=== PATIENT | male | born 1940 | race Caucasian/White ===

== ENCOUNTER → 2017-09-28 | Outpatient (CLI) | payer MEDICARE ==
--- NOTE | 2017-09-29 22:42 | MR ---
EXAMINATION TYPE: MR shoulder RT wo con DATE OF EXAM: 09/28/2017 COMPARISON: Outside bilateral shoulder x-ray May 24, 2017. HISTORY: Right shoulder pain with Limited ROM X6 months TECHNIQUE: Multiplanar, multisequence imaging of the right shoulder is performed without contrast. FINDINGS: Rotator Cuff: Distal rotator cuff tendons are intact. Rotator cuff muscle bulk is preserved. Subscapu nelia tendon is intact. Acromioclavicular Joint: There is marked joint space loss with capsular hypertrophy and mild spurring at acromioclavicular joint. There is tiny spur from inferior acromion seen best on paracoronal image s 11. Glenohumeral Joint: Moderate joint space loss is seen. There are small to moderate glenohumeral joint effusion. Labrum: Superior labrum shows degenerative increased signal. Biceps Tendon: The long head of biceps is in normal location within bicipital groove. Bone marrow signal: No focal abnormal marrow signal is appreciated. Other: No additional significant abnormality is appreciated. IMPRESSION: No rotator cuff tear is identified. Moderate acromioclavicular and glenohumeral joint art hropathy noted.
== END | disposition home or self-care (01) ==
LOC: RADMRIMAIN 20:38
PROVIDERS: ATTEND Orthopaedic Surgery
DX: M19.011 Primary osteoarthritis, right shoulder (principal)

== ENCOUNTER → 2018-05-16 | Outpatient (CLI) | payer MEDICARE ==
--- NOTE | 2018-05-16 10:23 | US ---
EXAMINATION TYPE: US kidneys/renal and bladder DATE OF EXAM: 05/16/2018 COMPARISON: NONE CLINICAL HISTORY: 77-year-old male R31.29 microscopic hematuria. EXAM MEASUREMENTS: Right Kidney: 11.0 x 7.8 x 5.6 cm Left Kidney: 12.4 x 5.6 x 6.3 cm Post Void Residual Volume: 88.3 mL Right Kidney: mid pole hyperechoic parallel lines suggests vessel wall calcification . No hydronephr osis. Left Kidney: No hydronephrosis. Superior pole simple cortical cyst seen = 1.0 x 1.0 x 0.9cm; mid pole calcification with posterior shadowing may be renal stone vs. Vessel wall calcification. Bladder: wnl; prominent median lobe of the prostate impressing into the posterior bladder base.Bila teral Jets seen: yes Normal Post Void Residual: no, as volume is greater than 50.0ml. IMPRESSION: 1. Hypertrophied median lobe of prostate gland impressing into the posterior bladder base. Postvoid r esidual bladder volume of 88 mL compatible with urinary retention. Correlate for BPH. 2. No hydronephrosis. 3. Either vascular calcifications or nonobstructive calculi in the kidneys measuring up to 1 cm.
== END ==
LOC: RADUSWWP 08:48
PROVIDERS: ATTEND Internal Medicine
DX: N40.0 Benign prostatic hyperplasia without lower urinary tract symptoms (principal); N20.0 Calculus of kidney
CPT/HCPCS: 76770

== ENCOUNTER → 2019-06-10 | Outpatient (CLI) | payer MEDICARE ==
--- NOTE | 2019-06-10 09:33 | XR ---
EXAMINATION TYPE: XR Hip Complete RT DATE OF EXAM: 06/10/2019 COMPARISON: NONE HISTORY: Pain TECHNIQUE: 2 views submitted FINDINGS: There is no evidence of erosive change or acute fracture. Concentric narrowing of the hip joint. IMPRESSION: 1. No evidence of acute fracture or dislocation.
== END | disposition home or self-care (01) ==
LOC: RADXRMAIN 09:12
PROVIDERS: ATTEND Internal Medicine
DX: M25.551 Pain in right hip (principal)
CPT/HCPCS: 73502

== ENCOUNTER → 2020-08-30 | Outpatient (CLI) | payer MEDICARE | END | disposition home or self-care (01) | LOC: LABWHC1 09:47 | PROVIDERS: ATTEND Nurse Practitioner Family | DX: J30.89 Other allergic rhinitis (principal) | CPT/HCPCS: 36415 ==

== ENCOUNTER → 2021-01-21 | Outpatient (CLI) | payer MEDICARE ==
--- NOTE | 2021-01-21 07:31 | CT ---
EXAMINATION TYPE: CT brain wo con DATE OF EXAM: 01/21/2021 HISTORY: Episodic lightheadedness, systolic murmur of aorta CT DLP: 1064.30 mGycm. Automated Exposure Control for Dose Reduction was Utilized. TECHNIQUE: CT scan of the head is performed without contrast. COMPARISON: None. FINDINGS: There is no acute intracranial hemorrhage or midline shift identified. There is mild diff use ventricular and sulcal prominence consistent with diffuse age-related cerebral atrophy. Lim-whit e matter differentiation fairly well maintained. The globes are intact and the visualized sinuses ar e clear. No suspicious opacification mastoid air cells. IMPRESSION: No acute intracranial hemorrhage or midline shift. There is mild diffuse age-related ce rebral atrophy noted.
--- NOTE | 2021-01-21 11:09 | ECHOF ---
Referral Reason:[id number] Episodic lightheadedness; I35.8 Systolic murmur of aorta MEASUREMENTS -------- HEIGHT: 170.2 cm WEIGHT: 83.9 kg BP: RVIDd: 3.4 cm (< 3.3) IVSd: 1.3 cm (0.6 - 1.1) LVIDd: 3.7 cm (3.9 - 5.3) LVPWd: 1.2 cm (0.6 - 1.1) IVSs: 1.9 cm LVIDs: 2.3 cm LVPWs: 1.7 cm LA Diam: 3.2 cm (2.7 - 3.8) LAESV Index (A-L): 20.54 ml/m Ao Diam: 3.8 cm (2.0 - 3.7) AV Cusp: 1.7 cm (1.5 - 2.6) MV E Jesus: 0.73 m/s MV DecT: 249 ms MV A Jesus: 0.93 m/s MV E/A Ratio: 0.79 AV maxP.84 mmHg AV maxP.84 mmHg AV meanP.90 mmHg RAP: 5.00 mmHg RVSP: 20.86 mmHg FINDINGS -------- Sinus rhythm. This was a technically difficult study with suboptimal parasternal views. The left ventricular size is normal. There is mild concentric left ventricular hypertrophy. Overa ll left ventricular systolic function is normal with, an EF between 60 - 65 %. The right ventricle is normal in size. Normal LA size by volume 22+/-6 ml/m2. The right atrium is normal in size. Interatrial and interventricular septum intact. Aortic valve is trileaflet and is moderately thickened. There is mild aortic stenosis present. Pe ak/mean gradient across the Aortic Valve is 17.84mmHg / 9.90mmHg. Mild mitral annular calcification present. There is trace to mild mitral regurgitation. Mild tricuspid regurgitation present. Right ventricular systolic pressure is normal at < 35 mmHg. There is no pulmonic regurgitation present. The aortic root is dilated measuring 3.8cm. Normal inferior vena cava with normal inspiratory collapse consistent with estimated right atrial pre ssure of 5 mmHg. There is no pericardial effusion. CONCLUSIONS -------- 1. The left ventricular size is normal. 2. There is mild concentric left ventricular hypertrophy. 3. Overall left ventricular systolic function is normal with, an EF between 60 - 65 %. 4. Aortic valve is trileaflet and is moderately thickened. 5. There is mild aortic stenosis present. 6. Peak/mean gradient across the Aortic Valve is 17.84mmHg / 9.90mmHg. 7. Mild mitral annular calcification present. 8. There is trace to mild mitral regurgitation. 9. Mild tricuspid regurgitation present. 10. The aortic root is dilated measuring 3.8cm. 11. There is no pericardial effusion. KIER PLEATER: Samanta Hanna RDCS
== END | disposition home or self-care (01) ==
LOC: RADCTMAIN 06:46
PROVIDERS: ATTEND Internal Medicine
DX: I08.3 Combined rheumatic disorders of mitral, aortic and tricuspid valves (principal); G31.9 Degenerative disease of nervous system, unspecified
CPT/HCPCS: 70450; 93306

== ENCOUNTER → 2022-01-17 | Outpatient (CLI) | payer MEDICARE | END | disposition home or self-care (01) | LOC: LABWHC1 10:27 | PROVIDERS: ATTEND Internal Medicine | DX: J02.9 Acute pharyngitis, unspecified (principal) | CPT/HCPCS: 87081; 87430; 87502 ==

== ENCOUNTER → 2022-01-18 | Outpatient (CLI) | payer MEDICARE | END | disposition home or self-care (01) | LOC: LABWHC1 11:00 | PROVIDERS: ATTEND Internal Medicine | DX: Z20.822 Contact with and (suspected) exposure to COVID-19 (principal); J02.9 Acute pharyngitis, unspecified | CPT/HCPCS: U0003; U0005 ==

== ENCOUNTER → 2022-08-29 | Outpatient (CLI) | payer MEDICARE ==
[2022-08-29 14:23] LABS: Basophils # (A) 0.05 X 10*3/uL (0.00-0.10); Basophils % (A) 0.7 %; Eosinophils # (A) 0.03 X 10*3/uL (0.04-0.35); Eosinophils % (A) 0.4 %; HCT 48.5 % (39.6-50.0); HGB 15.4 g/dL (13.0-17.0); Immature Grans, Automated 1.2 %; Lymphocytes # (A) 2.18 X 10*3/uL (0.90-5.00); Lymphocytes % (A) 28.9 %; MCHC 31.8 g/dL (32.0-37.0); MCV 91.3 fL (80.0-97.0); Mean Platelet Volume 10.2 fL (9.5-12.2); Monocytes # (A) 0.71 X 10*3/uL (0.20-1.00); Monocytes % (A) 9.4 %; NRBC Per 100 WBC 0 /100 WBCS (0.0-0.0); Neutrophils # (A) 4.48 X 10*3/uL (1.80-7.70); Neutrophils % (A) 59.4 %; Platelet Count 213 X 10*3/uL (140-440); RBC 5.31 X 10*6/uL (4.40-5.60); RDW 13.8 % (11.5-14.5); WBC 7.54 X 10*3/uL (4.50-10.00)
[2022-08-29 17:21] LABS: ALT 38 U/L (10-49); AST 23 U/L (14-35); African American GFR (CKD) 97.8 (60.0-200.0); Albumin 4.7 g/dL (3.8-4.9); Albumin/Globulin Ratio 1.62 (1.60-3.17); Alkaline Phosphatase 62 U/L (41-126); BUN/Creat Ratio 15.63 Ratio (12.00-20.00); Blood Urea Nitrogen 12.5 mg/dL (9.0-27.0); Calcium 9.9 mg/dL (8.7-10.3); Carbon Dioxide 26.1 mmol/L (20.0-27.5); Chloride 102 mmol/L (96-109); Chol/HDL Ratio 3.35 Ratio; Globulin 2.9 g/dL (1.6-3.3); Glucose 99 mg/dL (70-110); Non-African American GFR(CKD) 84.4 (60.0-200.0); Potassium 4.9 mmol/L (3.5-5.5); Sodium 142 mmol/L (135-145); Total Protein 7.6 g/dL (6.2-8.2)
== END | disposition home or self-care (01) ==
LOC: LABWHC1 09:21
PROVIDERS: ATTEND Family Medicine
DX: Z00.00 Encounter for general adult medical examination without abnormal findings (principal)
CPT/HCPCS: 36415; 80053; 80061; 83036; 85025

== ENCOUNTER → 2023-01-31 | Outpatient (CLI) | payer MEDICARE | END | disposition home or self-care (01) | LOC: LABWHC1 11:27 | PROVIDERS: ATTEND Nurse Practitioner Family | DX: L30.9 Dermatitis, unspecified (principal) | CPT/HCPCS: 36415; 86780 ==

== ENCOUNTER → 2024-08-08 | Outpatient (CLI) | payer MEDICARE ==
--- NOTE | 2024-08-08 09:07 | US ---
EXAMINATION TYPE: US liver DATE OF EXAM: 08/08/2024 COMPARISON: NONE CLINICAL INDICATION: Male, 83 years old with history of R17 Elevated billirubin; TECHNIQUE: Grayscale and color Doppler imaging of the right upper quadrant was performed. FINDINGS: EXAM MEASUREMENTS: Liver Length: 13.3 cm Gallbladder Wall: 0.2 cm CBD: 0.4 cm Right Kidney: 10.8 x 5.5 x 5.6 cm Pancreas: visualized portions wnl, limited by overlying midline bowel gas Liver: visualized portions heterogeneous, limited by rib shadowing and overlying bowel gas Gallbladder: wnl Evidence for sonographic White's sign: no CBD: visualized portions wnl, limited by overlying bowel gas Right Kidney: wnl Suboptimal study. The visualized liver is heterogeneously hyperechoic. This limits evaluation for foc al masses. No ascites is present. IMPRESSION: Suboptimal study. Heterogeneous hyperechoic appearance of liver is likely on basis of dif fuse fatty infiltrative hepatocellular disease. [facility], , 08/08/2024 9:04 AM
== END | disposition home or self-care (01) ==
LOC: RADUSWWP 08:17
PROVIDERS: ATTEND Family Medicine
DX: R17 Unspecified jaundice (principal)
CPT/HCPCS: 76705